=== PATIENT | male | born 1985 | race Caucasian/White ===

== ENCOUNTER 2017-07-04 15:02 | Emergency (ER) | payer OTHER ==
[~2017-07-04] VITALS: Ht 170.2 cm; Wt 90.7 kg
--- OUTSIDE RECORDS SUMMARY | 2017-07-04 15:09 | External Medical Summary Rpt | CCD ---
Author Author , MUKUL HICKMAN Address Unknown Phone [email or web address] Purpose Continuity of Care Document - through 2016
--- OUTSIDE RECORDS SUMMARY | 2017-07-04 15:09 | External Medical Summary Rpt | CCD ---
Author Author , MUKUL HICKMAN Address Unknown Phone [email or web address] Purpose Continuity of Care Document - through 2016
--- OUTSIDE RECORDS SUMMARY | 2017-07-04 15:09 | External Medical Summary Rpt | CCD ---
Demographics Preferred Language Urdu Marital Status Unknown Pentecostalism Affiliation Unknown Race Unknown Ethnic Group Unknown Author Author , VICK HICKMAN Address Unknown Phone Immunization No patient found.
--- OUTSIDE RECORDS SUMMARY | 2017-07-04 15:09 | External Medical Summary Rpt | CCD ---
Author Author [facility] Address Unknown Phone Unavailable Purpose Continuity of Care Document - through 2016
--- OUTSIDE RECORDS SUMMARY | 2017-07-04 15:09 | External Medical Summary Rpt | CCD ---
Demographics Preferred Language Slovak Marital Status Unknown Church Affiliation Unknown Race Unknown Ethnic Group Unknown Author Author , VICK HICKMAN Address Unknown Phone Immunization No patient found.
[2017-07-04] MEDS ORDERED: IBUPROFEN800 MG PO (15:43)
[2017-07-04] MEDS ORDERED: KEFLEX 500MG.500 MG PO (15:43)
--- NOTE | 2017-07-04 15:45 | Urgent Treatment Center Report ---
History of Present Issue Date/Time Seen by Provider 07/04/17 1538 Visit Reason Pt arrived:Walked Presenting Problem:DENTAL PAIN Location if Accident: Onset of symptoms date/time:/ or onset unknown for:MEDICAL HX UNKNOWN Have you (or family members/close friends) recently traveled outside the [place]? N If Yes, where/when: Have you had exposure to infectious disease within the past month? TB? Other? Specify: Patient states that he has a tooth on the right upper jaw that is barely hanging in his mouth States that the tooth has been black for several months now and recently fell down out of the gum State that he lost his medical insurance and has not been able to afford going to the doctor State that he came in today to see if we could help with pain and recommend a dentist for him to go see ALLERGIES Coded Allergies: Penicillins (07/04/17) History Medical History General CAD? No Angina: No OK: No Hypertension? No Hyperlipidemia? No CHF? No DVT? No PE? No COPD? No Asthma? No Anemia? No GERD? No Gastric ulcers? No GI Bleed? No Hernia? No Thyroid Problems? No Hypothyroidism? No CVA? No Seizures? No Diabetes? No Renal Insuffiency? No UTI? No Stones? No BPH? No GB Disease: No Nephritic Syndrome? No Asplenia? No Hepatitis? No Sickle Cell Disease? No Arthritis? No Migraines? No Cataracts? No Glaucoma? No MRSA? No HIV? No TB? No Anxiety? No Depression? No Cancer? No More? No Immunization HX DT/Tetanus > 10 Years Ago Surgical Hx Previous Surgery?N Social History Smoking Hx Smoker: Current Every Day Smoker Tobacco: Yes Type Cigarettes Packs/day 1 1/2 - 2 Packs Alcohol Alcohol: No Review of Systems All Other Systems Reviewed and Negative ENT dental caries, loose teeth, missing teeth. Physical Exam Vital Signs Vital Signs Date Time Temp Pulse Resp B/P Pulse O2 O2 Flow FiO2 Ox Delivery Rate 07/04 1518 98.3 70 18 137/79 98 General Appearance normal appearance, WD/WN, no apparent distress Ear, Nose, Throat Tooth on right upper jaw loose, black in color and several other missing and broken teeth noted Respiratory Status Yes: trachea midline, chest symmetrical, non tender chest. No: respiratory distress. Cardiovascular normal exam, regular rate/rhythm, no peripheral edema Neurologic alert, normal exam, oriented x 3 Medical Decision Making LABS/Meds/Orders Pt receiving controlled substance in ED? No Results/Orders Current Medication Orders Sig/Jay Start time Last Medication Dose Route Stop Time Status Admin Lidocaine HCl 15 ML ONCE ONE 07/04 1545 AC TP 07/04 1546 Orders Procedure Date/time Status UTC DENTAL BALL 07/04 1541 Active Departure Departure Time of Disposition 1541 Disposition DC Home or Self Care(routine) Clinical Impression Primary Impression: Pain, dental Condition STABLE Referrals BRADY UGARTE Patient Instructions DI for Dental Pain, DI for Tooth Decay, Tooth Abscess, Tooth Decay Additional Instructions Call tomorrow and see if you can get an appointment with DR Ugarte to have tooth extracted Use Dental balls as informed in the office today Take medication as prescribed Return if needed Discharge Counseling Counseled pt/family regarding diagnosis, medications/RX, home care, follow up needs Prescriptions Current Visit Scripts Ibuprofen (Ibuprofen 800MG) 800 MG PO QIDP PRN pain #30 TAB CEPHALEXIN (Keflex 500MG Capsule) 500 MG PO Q6H #40 CAP at 1546
[2017-07-04 15:52] VITALS: BP 137/79
== END 2017-07-04 15:54 | disposition home or self-care (01) ==
LOC: ER 15:02 → UTC 15:07
DX: K02.9 Dental caries, unspecified (principal); K08.89 Other specified disorders of teeth and supporting structures; Z88.0 Allergy status to penicillin; F17.210 Nicotine dependence, cigarettes, uncomplicated